=== PATIENT | female | born 1970 ===

== ENCOUNTER 2020-09-29 11:46 | Day surgery (SDC) | payer MEDICAID, OTHER ==
[2020-09-29] MEDS ORDERED: Ropivacaine 0.5% 5 MG/ML 30 ML SDV INJECT ONE (13:30)
[2020-09-29] MEDS ORDERED: Iopamidol 200-M 10 ML vial ITHECAL ONE (13:30)
[2020-09-29] MEDS ORDERED: Lidocaine 2% 5 ML SDV INJECT ONE (13:30)
[2020-09-29] MEDS ORDERED: Betamethasone Acetate/Betamethasone Sod Phosphate 30 MG/5 ML MDV EPIDUR ONE (13:30)
--- NOTE | 2020-09-29 20:49 | OR ---
SURGEON: Meghna Iglesias D.O. DATE OF PROCEDURE: 09/29/2020 PRIMARY SURGEON: Meghna Iglesias D.O. ASSISTANTS: OR staff present: 1. Fam Barba. 2. Joselyn Kat RN. 3. Ingrid Higuera. WOUND CLASS: I. PREOPERATIVE DIAGNOSES: 1. Lumbar spondylosis. 2. Chronic low back pain. 3. L4-5, L5-S1 facet arthropathy. POSTOPERATIVE DIAGNOSES: 1. Lumbar spondylosis. 2. Chronic low back pain. 3. L4-5 and L5-S1 facet arthropathy. PROCEDURES PERFORMED: 1. Right L4 radiofrequency ablation. 2. Right L5 radiofrequency ablation. 3. Left L4 radiofrequency ablation. 4. Left L5 radiofrequency ablation. 5. Fluoroscopic guidance for needle placement. 6. Local with oral Valium for sedation. JOINTS FOR RADIOFREQUENCY ABLATION: L5-S1 zygapophyseal joint. SCREENING QUESTIONS: The patient answered "No" to all the followin. Are you allergic to iodine, Betadine or latex? 2. Do have a bleeding disorder? 3. Are you on any anti-inflammatories or blood thinners? 4. Do you have any current local or systemic infections? DESCRIPTION OF PROCEDURE: The patient had the procedure thoroughly explained including all possible risks, benefits and alternatives. A consent was signed in my clinic indicating understanding and willingness to proceed. The patient presented to [facility] and was escorted to the dressing room to disrobe and change into a hospital gown. Preoperative vital signs were taken. The patient reported taking Valium 10 milligrams prior to the procedure. The patient was brought to the procedure room and placed in the prone position on the procedure room table. A pillow was placed under the hips in order to flatten the lumbar lordosis. The back was prepped with ChloraPrep times three and sterilely draped. All personnel in the operating room were dressed in appropriate attire including surgical scrubs, head and shoe covers. This was to ensure sterility while in the treatment room. During the time fluoroscopy was in use all personnel in the operating room wore lead key with thyroid collars. Sterile technique was used during the procedure. The skin overlying the target nerves were anesthetized with 2% Lidocaine Preservative-Free in a sterile 27-gauge 1.5 inch needle. The deep tissues were likewise infiltrated. Standard insulated radiofrequency probe needles with 10 millimeter active tips were inserted at the appropriate sites for the left L4 and L5 dorsal ramus nerves and right L4 and L5 dorsal ramus nerves for radiofrequency ablation. Proper placement was determined both fluoroscopically and with test stimulation at each primary site with 50 hertz for sensory and 2 hertz for motor stimulation. No radicular stimulation was identified and no distal motor activity was noted in the lower extremities. Radiofrequency denervation was performed at each site for 90 seconds at 80 degrees centigrade and repeated times two. The patient's nerves were numbed with a mixture of 12 milligrams of Celestone and 3 cubic centimeters of 2% Lidocaine and 3 cubic centimeters of 0.5% Ropivacaine. This was done for patient comfort prior to lesioning; 1 cubic centimeter total was injected at each site. Then the radiofrequency ablation needles were advanced under direct fluoroscopy and viewed in AP and oblique views. Stimulatory patterns were found to be excellent. Each nerve was lesioned twice. The patient tolerated the procedure well and had no complications. The vital signs were stable during and after the procedure. The staff escorted the patient to the recovery room area and the patient was released in stable condition after a brief stay in the recovery room monitored by the nurse. The patient was given both oral and written discharge and follow up instructions. The patient understands and knows to contact the office if there are any questions or concerns in the meantime. The patient has an appointment to follow up in three weeks. PREOPERATIVE PAIN: 5+/10. POSTOPERATIVE PAIN: 0/10. FOLLOWUP: In the Pain Clinic in 1 month. BABAR / GARRETT /[id number] RENE
== END 2020-09-29 14:33 ==
LOC: MW.SDS 11:46
PROVIDERS: ATTEND Anesthesiology
DX: G89.4 Chronic pain syndrome (principal); M47.816 Spondylosis without myelopathy or radiculopathy, lumbar region; M47.817 Spondylosis without myelopathy or radiculopathy, lumbosacral region; M96.1 Postlaminectomy syndrome, not elsewhere classified; M51.36 Other intervertebral disc degeneration, lumbar region; M79.18 Myalgia, other site; E66.9 Obesity, unspecified; Z88.2 Allergy status to sulfonamides; Z91.012 Allergy to eggs; Z91.018 Allergy to other foods; Z79.899 Other long term (current) drug therapy; Z98.890 Other specified postprocedural states
CPT/HCPCS: 64635; 64636; J0702; J2795; Q9966